=== PATIENT | female | born 1990 | race African-American/Black ===

== ENCOUNTER 2017-01-04 18:48 | Emergency (ER) | payer BC ==
[~2017-01-04] VITALS: Ht 175.3 cm; Wt 71.0 kg
[2017-01-04 19:59] LABS: HEMATOCRIT 34.8 % (36.0-46.0); MCH 29.7 PG (29.0-34.0); MCHC 33.9 G/DL (30.0-36.0); MCV 87.7 FL (83-99); MEAN PLAT.VOLUME 9.7 uM^3 (9.5-12.4); PLATELET COUNT 298 K/uL (156-360); RBC DIS.WIDTH-CV 14.4 % (11.8-14.6); RBC DIS.WIDTH-SD 46.6 % (39-53); RED BLOOD COUNT 3.97 M/uL (3.80-5.20)
[2017-01-04 20:09] LABS: CHLORIDE 104 mEq/L (99-109); POTASSIUM 3.7 mEq/L (3.7-5.4); SODIUM 138 mEq/L (136-147)
[2017-01-04 20:11] LABS: GLUCOSE 101 mg/dL (70-99)
[2017-01-04 20:12] LABS: ANION GAP 10 MEQ/L (2-14)
[2017-01-04 20:15] LABS: UREA NITROGEN (BUN) 7 mg/dL (9-23)
[2017-01-04 20:19] LABS: GFR ESTIMATE (CALCULATED) > 59 mL/min/
[2017-01-04 20:35] LABS: ADD MIUA? YES; BILIRUBIN NEGATIVE; BLOOD LARGE; COLOR AMBER ((YELLOW)); GLUCOSE (STRIP) NEGATIVE; KETONES 80; LEUKOCYTES LARGE; NITRITE NEGATIVE; PROTEIN (STRIP) 100; SPECIFIC GRAVITY 1.024 (1.000-1.030); UROBILINOGEN 0.2 MG/DL (0.2-1.0)
[2017-01-04 20:38] LABS: QUANTITATIVE HCG < 4.0 MIU/ML
[2017-01-04 20:58] LABS: BACTERIA 1+ /HPF; CASTS NONE SEEN /LPF; CRYSTALS NONE SEEN; EPITHELIAL CELLS 1+ /HPF; MUCUS 2+ /LPF; RED BLOOD CELLS 30-40 /HPF (0-5); WHITE BLOOD CELLS 20-30 /HPF (0-5)
[2017-01-04 21:58] LABS: INFLUENZA A VIRAL ANTIGEN NEGATIVE; INFLUENZA B VIRAL ANTIGEN NEGATIVE
[2017-01-04] MEDS ORDERED: MOTRIN600 MG PO (22:14)
[2017-01-04] MEDS ORDERED: NORCO 7.5/321 TABLET PO (22:14)
[2017-01-04] MEDS ORDERED: VALTREX1000 MG PO (22:14)
[2017-01-04] MEDS ORDERED: ZOFRAN ODT4 MG PO (22:16)
[2017-01-04 22:48] VITALS: BP 110/76
== END 2017-01-04 22:49 | disposition home or self-care (01) ==
LOC: EME 18:48
PROVIDERS: Physician Assistant
DX: R50.9 Fever, unspecified (principal); B34.9 Viral infection, unspecified; E86.0 Dehydration; A60.09 Herpesviral infection of other urogenital tract; R11.0 Nausea; R07.89 Other chest pain; R05 Cough; R42 Dizziness and giddiness; Z88.1 Allergy status to other antibiotic agents
CPT/HCPCS: 71020; 80048; 81003; 84702; 85027; 87210; 87254; 87502; 87651 90; 99281; 99285; J7030